=== PATIENT | female | born 1995 | race Two or more races ===

== ENCOUNTER 2016-08-23 21:02 | Emergency (ER) | payer SELFPAY ==
[2016-08-24] MEDS ORDERED: DIPHENHYDRAMINE HCL 50 MG/1 ML VIAL ONE (00:44)
[2016-08-24] MEDS ORDERED: KETOROLAC TROMETHAMINE 15 MG/ML VIAL ONE (00:44)
[2016-08-24] MEDS ORDERED: METOCLOPRAMIDE HCL 5 MG/ML 2ML VIAL ONE (00:44)
[2016-08-24] MEDS ORDERED: LACTATED RINGERS 1,000 ML ONE (00:45)
[2016-08-24 01:05] LABS: URINE BILIRUBIN NEGATIVE (NEGATIVE); URINE BLOOD 4+ (NEGATIVE); URINE GLUCOSE (UA) NEGATIVE (NEGATIVE); URINE LEUKOCYTE ESTERASE 1+ (NEGATIVE); URINE NITRITE NEGATIVE (NEGATIVE); URINE PROTEIN TRACE (NEGATIVE); URINE UROBILINOGEN NORMAL (0-1 mg/dl)
[2016-08-24 01:07] LABS: HCG,QUALITATIVE URINE NEGATIVE
[2016-08-24 01:08] LABS: URINE APPEARANCE SL CLOUDY; URINE COLOR YELLOW
[2016-08-24 01:11] LABS: URINE BACTERIA 1+
== END 2016-08-24 01:38 | disposition home or self-care (01) ==
LOC: ED 21:02
DX: R51 Headache (principal); J06.9 Acute upper respiratory infection, unspecified
CPT/HCPCS: 81025; 87086; 81001; 96375 ×2; 99283 ×2; 96374; 96361; J1200; J2765; J1885; J7120